=== PATIENT | male | born 1970 | race Caucasian/White ===

== ENCOUNTER 2017-07-16 11:55 | Emergency (ER) | payer OTHER ==
[2017-07-16] MEDS: IBUPROFEN 600 MG TAB PO (15:37)
[2017-07-16 15:48] LABS: ADD MAN DIFF? NO
[2017-07-16 15:50] LABS: BASOPHILS % 0.2 % (0.0-2.0); EOSINOPHILS # 0.2 10^3/ul (0.0-0.5); EOSINOPHILS % 1.2 % (0.0-7.0); HEMATOCRIT 42.9 % (42.0-52.0); HEMOGLOBIN 14.7 g/dl (14.0-18.0); LYMPHOCYTES # 3.8 10^3/ul (0.8-2.9); MEAN CORPUSCULAR HEMOGLOBIN 31.4 pg (29.0-33.0); MEAN CORPUSCULAR HGB CONC 34.3 g/dl (32.0-37.0); MEAN CORPUSCULAR VOLUME 91.7 fl (82.0-101.0); MEAN PLATELET VOLUME 9.9 fl (7.4-10.4); MONOCYTES % 6.3 % (0.0-11.0); NEUTROPHIL # 11.3 10^3/ul (1.6-7.5); NEUTROPHILS % 68.9 % (39.0-77.0); PLATELET COUNT 305 10^3/UL (140-415); RED BLOOD COUNT 4.68 10^6/ul (4.70-6.10); RED CELL DISTRIBUTION WIDTH 12.1 % (11.5-14.5)
[2017-07-16 15:50] LABS: WHITE BLOOD COUNT 16.4 10^3/ul (4.8-10.8)
[2017-07-16 16:15] LABS: ANION GAP 20 (8-16); BLOOD UREA NITROGEN 13 mg/dl (7-20); C-REACTIVE PROTEIN 0.6 mg/dl (0.0-0.9); CALCIUM 9.5 mg/dl (8.4-10.2); CARBON DIOXIDE 24 mmol/L (21-31); CHLORIDE 100 mmol/L (97-110); CREATININE 0.85 mg/dl (0.61-1.24); GLUCOSE 200 mg/dl (70-220); POTASSIUM 4.4 mmol/L (3.5-5.1); SODIUM 140 mmol/L (135-144)
[2017-07-16 17:14] LABS: ERYTHROCYTE SEDIMENTATION RATE 8 mm/Hr (0-15)
[2017-07-16] MEDS: LIDOCAINE 1% (MDV) 20 ML INJ SC (17:58)
== END 2017-07-16 18:40 | disposition home or self-care (01) ==
LOC: FTE 11:55
DX: M79.89 Other specified soft tissue disorders (principal); F17.210 Nicotine dependence, cigarettes, uncomplicated
CPT/HCPCS: 73130; 73130-RT; 80048; 85025; 85651; 86140; 99284-25

== ENCOUNTER 2017-07-17 01:34 | Emergency (ER) | payer OTHER ==
[2017-07-17] MEDS: LIDOCAINE 1% (MDV) 20 ML INJ SC (06:45)
== END 2017-07-17 07:25 | disposition home or self-care (01) ==
LOC: FTE 01:34
DX: L02.511 Cutaneous abscess of right hand (principal)
CPT/HCPCS: 26010; 99282-25